=== PATIENT | female | born 1980 | race Two or more races ===

== ENCOUNTER 2018-11-28 13:25 | Emergency (ER) | payer OTHER ==
[~2018-11-28] VITALS: Ht 154.9 cm; Wt 69.1 kg
[2018-11-28 13:34] VITALS: BP 132/70
--- NOTE | 2018-11-28 13:37 | NUR ---
URINE CUP HANDED TO PT FOR SAMPLE
--- NOTE | 2018-11-28 13:38 | NUR ---
PT AMBULATED TO ER BED 05
--- NOTE | 2018-11-28 13:38 | NUR ---
C/O LLQ ABDOMINAL PAIN RADIATING TO L LOWER BACK SINCE THIS MORNING. +N/V ONE TIME. DENIES DYSURIA, VAGINAL BLEEDING OR ABDNOMAL DISCHARGE. SKIN IS INTACT, PINK/WARM/DRY; AAOX4, PERRL, WITH EVEN AND STEADY GAIT; LUNGS CLEAR BL, BREATHING UNLABORED; HR EVEN AND REGULAR, BL PERIPHERAL PULSES PRESENT; BS ACTIVE X4, NO TENDERNESS TO PALPATION, NO HEPATOSPLENOMEGALLY PALPATED, RESONANT TO PERCUSSION; PT DENIES ANY FEVER, CP, SOB, OR COUGH AT THIS TIME; PT STATES 10/10 PAIN AT THIS TIME; VSS; PATIENT POSITIONED FOR COMFORT; HOB ELEVATED; BEDRAILS UP X2; BED DOWN.
--- NOTE | 2018-11-28 14:00 | NUR ---
PT ON BED IN SUPINE POSITION EYES OPEN, A/OX4, BED IN LOW POSITION, LOCKED AND SIDE RAILS UP, PT ON FULL MONITOR, NO IDENTIFIED REQUESTS AT THIS TIME.
[2018-11-28] MEDS ORDERED: KETOROLAC 60 MG/2 ML VIAL IM ONE (14:10)
[2018-11-28 14:52] LABS: BASOPHILS % (AUTO) 0.5 % (0.0-2.0); EOSINOPHILS % (AUTO) 0.1 % (0.0-4.0); HEMATOCRIT 33.8 % (36-48); HEMOGLOBIN 11.5 g/dL (12.0-16.0); LYMPHOCYTES # (AUTO) 1.1 K/uL (2.5-16.5); LYMPHOCYTES % (AUTO) 13.2 % (20.5-51.1); MEAN CORPUSCULAR HEMOGLOBIN 30 pg (27-31); MEAN CORPUSCULAR HGB CONC 34 g/dL (33-37); MEAN CORPUSCULAR VOLUME 87.6 fL (80-94); MONOCYTES # (AUTO) 0.3 K/uL (0.8-1.0); MONOCYTES % (AUTO) 3.7 % (1.7-9.3); NEUTROPHILS # (AUTO) 7.1 K/uL (1.8-7.7); NEUTROPHILS % (AUTO) 82.5 % (42.2-75.2); PLATELET COUNT (AUTO) 200 K/uL (140-450); RED BLOOD CELL COUNT(AUTO) 3.86 MIL/uL (4.20-5.40); RED CELL DISTRIBUTION WIDTH 12.5 % (11.6-13.7); WHITE BLOOD COUNT (AUTO) 8.6 K/uL (4.8-10.8)
--- NOTE | 2018-11-28 15:00 | NUR ---
US AT BEDSIDE
[2018-11-28 15:18] LABS: CARBON DIOXIDE 26.5 mmol/L (21-32); CREATININE 0.6 mg/dL (0.6-1.3); POTASSIUM 3.5 mmol/L (3.5-5.1)
[2018-11-28 16:05] VITALS: BP 125/74
--- NOTE | 2018-11-28 16:38 | NUR ---
Patient discharged with v/s stable. Written and verbal after care instructions given and explained. Patient alert, oriented and verbalized understanding of instructions. Ambulatory with steady gait. All questions addressed prior to discharge. ID band removed. Patient advised to follow up with PMD. Rx of Naprosyn & [place] given. Patient educated on indication of medication including possible reaction and side effects. Opportunity to ask questions provided and answered.
== END 2018-11-28 16:38 | disposition home or self-care (01) ==
LOC: MED 13:25
DX: N83.202 Unspecified ovarian cyst, left side (principal); I10 Essential (primary) hypertension
CPT/HCPCS: 36415; 76856; 80048; 81002; 81025; 85025; 93976; 96372; 99284; J1885; Q0092